=== PATIENT | female | born 1955 | race Caucasian/White ===

== ENCOUNTER 2022-04-22 10:04 | Inpatient (IN) ==
[2022-04-14 20:31] LABS: Basophils # (Auto) 0.07 K/mcL (0.00-0.30); Basophils % (Auto) 1.2 % (0.0-2.0); Eosinophils # (Auto) 0.19 K/mcL (0.00-0.70); Eosinophils % (Auto) 3.2 % (0.0-7.0); Hematocrit 36.7 % (34.1-44.9); Hemoglobin 11.7 g/dL (11.2-15.7); Lymphocytes # (Auto) 2.14 K/mcL (1.50-4.80); Lymphocytes % (Auto) 36.3 % (15.5-49.0); Mean Corpuscular HGB Conc 31.9 g/dL (31.0-36.0); Mean Platelet Volume 9.3 fL (7.4-10.4); Monocytes # (Auto) 0.35 K/mcL (0.10-0.90); Monocytes % (Auto) 5.9 % (1.0-12.0); Neutrophils % (Auto) 53.1 % (38.0-78.0); Platelet Count 246 K/mcL (140-440); RBC 4.17 M/mcL (3.59-5.38); Red Cell Distribution Width 14.3 % (11.5-14.5); WBC 5.9 K/mcL (4.5-11.0)
[2022-04-14 20:41] LABS: Blood Urea Nitrogen 8 mg/dL (8-23); Calcium 9.3 mg/dL (8.6-10.4); Carbon Dioxide 26 mmol/L (22-30); Chloride 99 mmol/L (96-108); Glomerular Filtration Rate 77; Glucose 108 mg/dL (70-105)
[2022-04-14 20:46] LABS: Prothrombin Time 13.3 sec (11.9-14.5)
[2022-04-14 22:59] LABS: Estimated Average Glucose(eAG) 103 mg/dL; Hemoglobin A1C 5.2 % Hgb (4.0-6.0)
[2022-04-17 17:18] LABS: Appearance,Urine Clear (Clear); Bilirubin,Urine Negative (Negative); Color,Urine Yellow; Culture Indicated,Urine No; Glucose,Urine (UA) Negative (Negative); Ketones,Urine Negative (Negative); Leukocyte Esterase,Urine Negative /uL (Negative); Nitrate,Urine Negative (Negative); Protein,Urine Negative (Negative); Specific Gravity,Urine 1.015 (1.000-1.035); Urine Blood Negative ery/mcL (Negative); Urobilinogen,Urine Normal
--- NOTE | 2022-04-18 07:38 | EKG ---
[facility] Test Date: 2022-04-14 Pat Name: Nash Nicholson Department: [facility] Room: Gender: Female Food Sampler: : 1955 Requested By: Isaac Owens Order Number: [id number] Reading MD: Av Chacko M.D. Measurements Intervals Liguori Rate: 67 P: 66 MA: 163 QRS: 32 QRSD: 107 T: 56 QT: 412 QTc: 435 Interpretive Statements Sinus rhythm Probable left atrial enlargement Electronically Signed On 04-18-2022 7:37:51 PDT by Av Chacko M.D. /[id number]
[~2022-04-22 10:04] MED LIST: 0.9 % SODIUM CHLORIDE 9 ML, KETOROLAC 30 MG, ROPIVACAINE HCL/PF 49.5 ML, EPINEPHrine 0.... IJ SCH; CELECOXIB 200 MG CAPSULE PO SCH; PREGABALIN 75 MG CAPSULE PO SCH; VANCOMYCIN 1,500 MG in 0.9 % SODIUM CHLORIDE 500 ML IV SCH; oxyCODONE 10 MG TAB.ER.12H PO SCH
[2022-04-22] MEDS ORDERED: ROPIVACAINE HCL/PF 30 ML VIAL IJ ONE (14:20)
[2022-04-22] MEDS ORDERED: TRANEXAMIC ACID 1,000 MG/10 ML VIAL ONE (14:20)
[2022-04-22] MEDS ORDERED: LIDOCAINE HCL/PF 100 MG/5 ML SYRINGE IV ONE (14:20)
[2022-04-22] MEDS ORDERED: PROPOFOL 200 MG/20 ML VIAL IV ONE (14:20)
[2022-04-22] MEDS ORDERED: KETAMINE 50 MG/ML Syringe (ANEST) IV ONE (14:20)
[2022-04-22] MEDS ORDERED: DEXAMETHASONE 10 MG/ML VIAL ONE (14:20)
[2022-04-22] MEDS ORDERED: ePHEDrine 50 MG/5 ML SYRINGE (ANEST) IV ONE (14:20)
[2022-04-22] MEDS ORDERED: MAGNESIUM SULFATE 2 GM/50 ML BAG IV ONE (14:20)
[2022-04-22] MEDS ORDERED: ONDANSETRON 4 MG/2 ML VIAL ONE (14:20)
[2022-04-22] MEDS ORDERED: GLYCOPYRROLATE 0.2 MG/ML VIAL IV ONE (14:20)
[2022-04-22] MEDS ORDERED: METOPROLOL TARTRATE 5 MG/5 ML VIAL IV PRN (16:50)
[2022-04-22] MEDS ORDERED: LACTATED RINGERS 250 ML IV PRN (16:50)
[2022-04-22] MEDS ORDERED: ACETAMINOPHEN 1,000 MG/100 ML BAG IV ONE (16:50)
[2022-04-22] MEDS ORDERED: NALOXONE HCL 0.4 MG/ML VIAL IV PRN (16:50)
[2022-04-22] MEDS ORDERED: IPRATROPIUM/ALBUTEROL 3 ML AMPUL.NEB NEB PRN ×2 (16:50→16:53)
[2022-04-22] MEDS ORDERED: METHOCARBAMOL 1,000 MG/10 ML VIAL IV PRN (16:50)
[2022-04-22] MEDS ORDERED: ONDANSETRON 4 MG/2 ML VIAL IV PRN ×2 (16:50→17:02)
[2022-04-22] MEDS ORDERED: PROMETHAZINE 25 MG/ML VIAL IV PRN (16:50)
[2022-04-22] MEDS ORDERED: MEPERIDINE 25 MG/ML VIAL IV PRN (16:50)
[2022-04-22] MEDS ORDERED: LABETALOL 5 MG/ML ML IV PRN (16:50)
[2022-04-22] MEDS ORDERED: METOCLOPRAMIDE 10 MG/2 ML VIAL IV PRN ×2 (16:50→20:18)
[2022-04-22] MEDS ORDERED: HYDROmorphone 0.5 MG/0.5 ML SYRINGE IV PRN (16:53)
[2022-04-22] MEDS ORDERED: fentaNYL 100 MCG/2 ML VIAL IV PRN (16:53)
[2022-04-22] MEDS ORDERED: LACTATED RINGERS 1,000 ML IV SCH (17:00)
--- NOTE | 2022-04-22 17:00 | General Surgery Procedure Note ---
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
--- NOTE | 2022-04-22 17:01 | Discharge Plan ---
Discharge Instructions - TKA Patient Instructions Total Knee Protocol: For Total Knee: Start ROM KEENAN with stationary bike or rocking chair. Work on gaining full extension of knee. Posterior dislocation precautions provided. Hip abductor strengthening and gait training instructions provided. Apply Cryocuff as instructed. Dressing Care: May shower in 2 days Discharge Plan Patient/Caregiver Discharge Instructions Activity: as instructed Diet: Regular Diet Prescriptions: No Action calcium 600 mg Capsule 1,200 mg PO QDAY meloxicam 15 mg Tablet 15 mg PO QDAY acetaminophen 500 mg Tablet 1,000 mg PO QID PRN (Reason: Pain) levothyroxine 100 mcg Tablet 100 mcg PO QDAY ferrous sulfate 325 mg (65 mg iron) Tablet 325 mg PO QDAY docusate sodium [Stool Softener] 100 mg Capsule 100 mg PO QDAY estradiol 0.01 % (0.1 mg/gram) Cream 1 g VAGINAL WEEKLY cholecalciferol (vitamin D3) [Vitamin D3] 25 mcg (1,000 unit) Capsule 25 mcg PO QDAY Follow Up Plan Follow up with: Av Sevilla MD [Physician] - 05/07/22 2:30 pm Patient Disposition: Home, Self-Care Rehab Potential: Good I certify that the patient requires SNF services: No Overall status at discharge: patient is progressing back to baseline Discharge Orders: Discharge Order (Routine); Ordered 04/23/22 Ordered By: Av Sevilla Discharge Comment: cc: s/p revision left tka
[2022-04-22] MEDS ORDERED: MAGNESIUM HYDROXIDE 30 ML ORAL.SUSP PO PRN (17:02)
[2022-04-22] MEDS ORDERED: TRANEXAMIC ACID 1,000 MG/10 ML VIAL IV SCH (17:02)
[2022-04-22] MEDS ORDERED: POLYETHYLENE GLYCOL 3350 17 GM PACKET PO PRN (17:02)
[2022-04-22] MEDS ORDERED: ONDANSETRON 4 MG ODT TABLET SL PRN (17:02)
[2022-04-22] MEDS ORDERED: BISACODYL 10 MG SUPP.RECT PR PRN (17:02)
[2022-04-22] MEDS ORDERED: morphine 4 MG/ML VIAL IV PRN (17:02)
[2022-04-22] MEDS ORDERED: FLEETS ADULT ENEMA PR PRN (17:02)
[2022-04-22] MEDS ORDERED: HYDROcodone/APAP 10/325MG TABLET PO PRN (17:02)
[2022-04-22] MEDS ORDERED: METHOCARBAMOL 750 MG TABLET PO PRN (17:02)
[2022-04-22] MEDS ORDERED: ceFAZolin 1 GM VIAL IV SCH (17:15)
--- NOTE | 2022-04-22 18:08 | XRay Report ---
CLINICAL INFORMATION: Post-Op Total Knee COMPARISON: Preoperative films 03/03/2022. FINDINGS: Longstem total knee prosthetic revision is anatomically aligned. No osseous abnormality. Soft tissue swelling seen as expected IMPRESSION: Knee prostheses in anatomic alignment Interpreted and Authenticated by: Av Moore 04/22/22
[2022-04-22] MEDS: KETOROLAC 15 MG/ML VIAL IV SCH (18:35)
[2022-04-22] MEDS: LACTATED RINGERS 1,000 ML IV SCH (18:35)
[2022-04-22] MEDS ORDERED: METOCLOPRAMIDE 10 MG/2 ML VIAL ONE (20:42)
[2022-04-22] MEDS ORDERED: SENNOSIDES 1 TABLET PO SCH (21:00)
[2022-04-22] MEDS: DOCUSATE SODIUM 100 MG CAPSULE PO SCH (21:36)
[2022-04-22] MEDS: 0.9 % SODIUM CHLORIDE 10 ML SYRINGE IV SCH (21:36)
[2022-04-22] MEDS: ASPIRIN 81 MG TAB.CHEW PO SCH (21:36)
[2022-04-23] MEDS: KETOROLAC 15 MG/ML VIAL IV SCH ×3 (00:06→12:08)
[2022-04-23] MEDS: VANCOMYCIN 1,500 MG in 0.9 % SODIUM CHLORIDE 500 ML IV SCH ×2 (00:06→09:29)
[2022-04-23] MEDS: LACTATED RINGERS 1,000 ML IV SCH ×2 (01:00→08:52)
[2022-04-23] MEDS: 0.9 % SODIUM CHLORIDE 10 ML SYRINGE IV SCH ×2 (05:56→12:19)
[2022-04-23 06:52] LABS: Hemoglobin 10.2 g/dL (11.2-15.7)
--- NOTE | 2022-04-23 07:02 | Orthopedic Progress Note ---
SUBJECTIVE Subjective Patient information: Note initiated : 04/23/22 at 7:01 am Service Date, if different from initiated Date: [] Patient: Nash Nicholson 67 y/o F admitted on 04/22/22 for Left Total Knee Arthroplasty Revision. Chief Complaint: [] Principal diagnosis: doing well s/p revision tka Constitutional Vitals: Vital Signs Temp Pulse Resp BP Pulse Ox O2 Del Method O2 Flow Rate 97.4 F 78 12 107/56 94 1 04/23/22 03:31 04/23/22 03:31 04/23/22 03:31 04/23/22 03:31 04/23/22 03:55 04/23/22 03:55 04/23/22 03:31 Period Temp Pulse Resp BP Sys/Mason Pulse Ox O2 Del Method O2 Flow Rate Last 24 Hr 97.0 F-98.0 F 66-104 12-21 107-168/56-80 89-100 Nasal Cannula- Room Air 0-6 Intake and Output 04/22/22 04/23/22 04/23/22 21:59 05:59 13:59 Intake Total 2300 1777 Output Total 625 1225 Balance 1675 552 Weight 177 lb 11.2 oz Intake & Output: Intake & Output 04/22/22 04/23/22 04/23/22 21:59 05:59 13:59 Intake Total 2300 1777 Output Total 625 1225 Balance 1675 552 Weight 177 lb 11.2 oz Intake: IV 600 1427 Lactated Ringers 1,000 ml @ 125 927 mls/hr IV .Q8H [facility] Rx#: [id number] Vancomycin 1,500 mg In Sodium 500 500 Chloride 0.9% 500 ml @ 333.3 mls/hr IV Q12H [facility] Rx#: [id number] Oral 350 IV - Manual Only 1700 Output: Urine Catheter Amount 475 Void Amount 1225 Estimated Blood Loss 150 Other: Urine Appearance Clear Clear Urine Color Pale Yellow Extremities Exam Extremities exam: Present joint swelling, normal capillary refill, normal inspection, tenderness, Foot pink and warm and neurovascular intact; Absent calf tenderness or full ROM OBJ DATA Labs CBC & Chem 7: 04/23/22 05:28 04/14/22 15:45 Labs: Abnormal Lab Results 04/23/22 05:28 Hgb 10.2 L Hct 32.0 L Meds: Medications Hydrocodone Bitart/Acetaminophen (Hydrocodone/Apap 10/325mg Tablet) 1 - 2 tab PO Q4HP PRN; Protocol PRN Reason: Per Pain Protocol Aspirin (Aspirin 81 Mg Tab.Chew) 81 mg PO BID [facility] Last Admin: 04/22/22 21:36 Dose: 81 mg Bisacodyl (Bisacodyl 10 Mg Supp.Rect) 10 mg DC Q2-3DAYS PRN PRN Reason: Constipation Docusate Sodium (Docusate Sodium 100 Mg Capsule) 100 mg PO BID [facility] Last Admin: 04/22/22 21:36 Dose: 100 mg Lactated Ringer's (Lactated Ringers) 1,000 mls @ 125 mls/hr IV .Q8H [facility] Last Infusion: 04/23/22 02:00 Dose: Infused Vancomycin HCl 1,500 mg/ (Sodium Chloride) 500 mls @ 333.3 mls/hr IV Q12H [facility] Stop: 04/23/22 13:31 Last Infusion: 04/23/22 01:40 Dose: Infused Ketorolac Tromethamine (Ketorolac 15 Mg/Ml Vial) 15 mg IV Q6 [facility] Stop: 04/24/22 12:01 Last Admin: 04/23/22 05:56 Dose: 15 mg Levothyroxine Sodium (Levothyroxine 100 Mcg Tablet) 100 mcg PO ACB [facility] Magnesium Hydroxide (Magnesium Hydroxide 30 Ml Oral.Susp) 30 ml PO BIDP PRN PRN Reason: Constipation Methocarbamol (Methocarbamol 750 Mg Tablet) 750 mg PO Q6HP PRN PRN Reason: Muscle Spasm Metoclopramide HCl (Metoclopramide 10 Mg/2 Ml Vial) 10 mg IV Q6HP PRN PRN Reason: Nausea And Vomiting Last Admin: 04/22/22 20:33 Dose: 10 mg Morphine Sulfate (Morphine 4 Mg/Ml Vial) 2 - 6 mg IV Q1HP PRN; Protocol PRN Reason: Per Pain Protocol Ondansetron HCl (Ondansetron 4 Mg/2 Ml Vial) 4 mg IV Q4HP PRN; Protocol PRN Reason: Nausea And Vomiting Ondansetron HCl (Ondansetron 4 Mg Odt Tablet) 4 mg SL Q4HP PRN; Protocol PRN Reason: Nausea And Vomiting Polyethylene Glycol (Polyethylene Glycol 3350 17 Gm Packet) 17 gm PO DAILYP PRN PRN Reason: Constipation Senna (Sennosides 1 Tablet) 2 tab PO HS [facility] Last Admin: 04/22/22 21:35 Dose: 2 tab Sodium Biphosphate/Sodium Phosphate (Fleets Adult Enema) 1 dose DC Q3-4DAYS PRN PRN Reason: Constipation Sodium Chloride (0.9 % Sodium Chloride 10 Ml Syringe) 10 ml IV Q8 [facility] Last Admin: 04/23/22 05:56 Dose: 10 ml A/P Assessment and plan (1) Failed total knee arthroplasty: Plan: pod 1 s/p left revision tka wbat pain control dvt prophylaxis d/c planning - home today Status: Acute Time Spent With Patient Time: Total time spent is greater than 50% in coordination of care (as documented) at patient's floor/unit and/or counseling patient:
[2022-04-23] MEDS ORDERED: LEVOTHYROXINE 100 MCG TABLET PO SCH (07:30)
--- NOTE | 2022-04-23 08:50 | Operative Note ---
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 PROCEDURE: Right revision total knee arthroplasty, tibia and femoral component. SURGEON: Av Sevilla M.D. SCIENCE TEACHER SURGEON: SELINA Gaines. This provider's expertise and technical skill were required throughout the case. The PA assisted with preoperative coordination, intraoperative retraction, wound closure, and dressing and splint application, as well as postoperative documentation and care coordination. ANESTHESIA: Spinal with LMA assist. ESTIMATED BLOOD LOSS: 150 mL. COMPLICATIONS: None noted. SPECIMENS REMOVED: Culture x1, frozen section x2, less than 1 white blood cell per high power field. DRAINS: None. TOURNIQUET TIME: 1 hour and 50 minutes at 250 mmHg. IMPLANTS: DePuy CMW2 gentamicin bone cement 20 grams x4. DePuy Attune knee revision tibial base rotating platform, size 5, cemented. DePuy Attune revision press-fit stem, 12 x 60 mm. DePuy Attune revision tibial sleeve Porocoat partially coated 37 mm. DePuy Attune revision CRS rotating platform insert, size 6, 10 mm AOX. DePuy Attune revision tibial distal femoral augment, size 6, 4 mm cemented. DePuy Attune revision posterior femoral augment, size 6, 4 mm cemented. DePuy Attune revision posterior femoral augment, size 6, 8 mm cemented. DePuy Attune revision femoral sleeve, Porocoat fully coated 30 mm. DePuy Attune revision CRS femoral size 6 left, cemented. DePuy Attune revision press-fit stem, 12 x 60. INDICATIONS: The patient had a previous left total knee arthroplasty done. She has had increasing pain recently. We saw her in the office and there was significant osteolysis underneath the tibial component. We felt that this was a failed and loose total knee arthroplasty. Aspiration revealed no evidence of infection. She elected to proceed with surgical intervention. The risks and benefits were discussed with the patient in detail including, but not limited to, the risks of anesthesia, problems with the heart or lungs related to anesthesia, infection, compromise or injury to the nerves and blood vessels, deep venous thrombosis, pulmonary embolism, pneumonia, continued pain after surgery, worsening pain or symptoms after surgery, swelling, loss of motion, instability, leg length discrepancy, and need for repeat surgery. DESCRIPTION OF PROCEDURE: The patient was seen in the preanesthesia waiting room where all questions were answered and the correct side and site were identified and marked. The patient was transferred to the operating room and administered the anesthetic. Preoperative antibiotics were held until culture results. A timeout was then called. The extremity was prepped and draped, exsanguinated, and the tourniquet was inflated to 250 mmHg. A midline skin incision was made and a standard medial parapatellar arthrotomy was performed. When I came in, we had a gush of fluid, which was sent for culture. The tissue was hypertrophied and crow in nature. Of all the synovial tissue I performed a complete synovectomy then removed all the scar tissue. The tibial component was intact and normal in appearance. The femoral component was also intact. I first removed the polyethylene and then I used the flexible osteotomes placed all around the femoral component and I removed the femoral component. We took all of the fibrous tissue and cement off underneath the femur. It was intact and was not loose. We then turned our attention to the tibia. The tibia had subsided. I used flexible osteotomes but it was completely loose. I was able to back it out and there was no cement attached to the tibia. I used the cement osteotomes to break up and remove all the cement from underneath the tibia as well as tibial canal. Once this was completely excised, and prior to that, I did take some tissue under the tibia as well as some of the synovial tissue into the tibia as well as synovial tissue and both came back no white blood cells per high power field, so I elected to continue. We came back to the tibia. We reamed distally and then used the broach and broached up to a 37 mm with good stability. I placed the tibial baseplate, a size 5, with good fill over the proximal tibia. Attention was turned towards the femur. We reamed through the femoral component and then placed the sleeve into the femur. We placed our cuts on the distal femur, followed by re-cutting all the proximal pieces. The medial side had a 4 mm distal augment and the posterior medial was a 4 mm distal augment and the lateral posterior was an 8 mm augment. We then placed the trial and took the knee through range of motion with a 10 mm polyethylene liner. We had full range of motion and stability. Trials were placed and we chose the polyethylene insert thickness that provided the best stability in all planes. We removed all trials, irrigated and dried all cut surfaces. We cemented the components into place including tibia, femur and patella. We placed a trial liner and held the knee in full extension with the patella compressed while the cement cured. We then removed all excess cement and placed the final polyethylene tibiofemoral component. Irrigation with 3 liters of antibiotic saline was then performed using jet lavage. We let the tourniquet down and coagulated bleeding vessels. We injected 100 cubic centimeter volume including Ropivacaine 49.25 cubic centimeters at 5 milligrams per cubic centimeter, Ketorolac 30 milligrams, and Epinephrine 0.5 milligrams into 100 cubic centimeters volume of normal saline. We closed the retinaculum with #1 Stratafix and #0 Vicryl and closed the subcutaneous tissue and skin in layers out to Dermabond in the skin. A sterile pressure dressing was applied. All needle and sponge counts were correct. The patient was transferred to the recovery room in stable condition. COMPA:[email or web address] Job ID: [id number] Doc ID: [id number] Marcos Sevilla MD
[2022-04-23] MEDS: DOCUSATE SODIUM 100 MG CAPSULE PO SCH (08:51)
[2022-04-23] MEDS: ASPIRIN 81 MG TAB.CHEW PO SCH (08:51)
[2022-04-23] MEDS ORDERED: DOCUSATE SODIUM 100 MG CAPSULE PO SCH (09:00)
--- NOTE | 2022-04-30 15:15 | Operative Note ---
DATE OF OPERATION: 04/22/2022 Amendment to Operative Note dictated on 04/22/2022 by Marcos Sevilla M.D. ADDENDUM: This was a left total knee arthroplasty revision. Any reference to the right in the original note is incorrect. 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 PROCEDURE PERFORMED: Revision left total knee arthroplasty, tibia and femoral components. COMPA:[email or web address] Job ID: [id number] Doc ID: [id number] Marcos Sevilla MD
== END 2022-04-23 13:00 | disposition home or self-care (01) | DRG 468 ==
LOC: MEDSUR 10:04 → EDSTATUS 14:00
PROVIDERS: ADMIT Orthopaedic Surgery Sports Medicine; ATTEND Orthopaedic Surgery Sports Medicine